=== PATIENT | female | born 1940 | race African-American/Black ===

== ENCOUNTER 2016-12-26 16:21 | Emergency (ER) | payer OTHER ==
[~2016-12-26] VITALS: Ht 162.6 cm; Wt 88.5 kg
[2016-12-26 17:50] LABS: microscopic required? NO
[2016-12-26 17:58] LABS: PLATELET COUNT 270 x10^3mcL (130-400)
[2016-12-26 17:59] LABS: RED CELL DISTRIBUTION WIDTH 16.2 % (11.5-14.5)
[2016-12-26 18:05] LABS: CALCIUM 8.4 mg/dL (8.5-10.1); CARBON DIOXIDE 25.8 mmol/L (21-32); CHLORIDE SERUM 107 mmol/L (98-107); CREATININE SERUM 0.9 mg/dL (0.6-1.0); GLUCOSE SERUM 95 mg/dL (74-106); POTASSIUM SERUM 4.5 mmol/L (3.5-5.1); SODIUM SERUM 141 mmol/L (136-145)
[2016-12-26 18:13] LABS: urine erythrocyte NEGATIVE (NEGATIVE)
[2016-12-26 18:18] LABS: ALBUMIN 3.5 g/dL (3.4-5.0); ALKALINE PHOSPHATASE 109 U/L (46-116); ALT/SGPT 30 U/L (14-59); AMYLASE 70 U/L (25-115); AST/SGOT 22 U/L (15-37); BILIRUBIN TOTAL 0.52 mg/dL (0.20-1.00); CHOLESTEROL 189 mg/dL (<200); LIPASE 177 IU/L (73-393); T4(THYROXINE) 7.7 ug/dL (4.7-13.3); TOTAL PROTEIN, SERUM 7.4 g/dL (6.4-8.2)
[2016-12-26 18:21] LABS: HDL CHOLESTEROL 84 mg/dL (40-60)
[2016-12-26 20:00] VITALS: BP 141/103
== END 2016-12-26 20:00 | disposition home or self-care (01) ==
LOC: ED 16:21
PROVIDERS: Emergency Medicine
DX: R60.0 Localized edema (principal); F03.90 Unspecified dementia, unspecified severity, without behavioral disturbance, psychotic disturbance, mood disturbance, and anxiety; I10 Essential (primary) hypertension; E78.00 Pure hypercholesterolemia, unspecified; E66.9 Obesity, unspecified; I44.0 Atrioventricular block, first degree; Z88.1 Allergy status to other antibiotic agents; Z88.5 Allergy status to narcotic agent
CPT/HCPCS: 36415; 83880; Q0092

== ENCOUNTER 2017-01-15 17:32 | Inpatient (IN) | payer OTHER ==
[~2017-01-15] VITALS: Ht 157.5 cm; Wt 93.1 kg
[2017-01-15 19:34] LABS: BASOPHIL % 1.5 % (0-2); PLATELET COUNT 223 x10^3mcL (130-400)
[2017-01-15 19:50] LABS: CALCIUM 9.5 mg/dL (8.5-10.1); CARBON DIOXIDE 23.5 mmol/L (21-32); CHLORIDE SERUM 107 mmol/L (98-107); GLUCOSE SERUM 131 mg/dL (74-106); POTASSIUM SERUM 4.3 mmol/L (3.5-5.1); SODIUM SERUM 142 mmol/L (136-145)
[2017-01-15 19:55] LABS: ALBUMIN 3.6 g/dL (3.4-5.0); ALKALINE PHOSPHATASE 118 U/L (46-116); ALT/SGPT 19 U/L (14-59); AST/SGOT 21 U/L (15-37)
[2017-01-15 19:58] LABS: RED CELL DISTRIBUTION WIDTH 16.1 % (11.5-14.5)
[2017-01-15] MEDS ORDERED: NAMENDA10 M2 PO (22:04)
[2017-01-15] MEDS ORDERED: CITALOPRAM HYDR20 M1 PO (22:04)
[2017-01-15] MEDS ORDERED: CHLORPROMAZINE10 MG PO (22:05)
[2017-01-15] MEDS ORDERED: SIMVASTATIN20 M1 PO (22:06)
[2017-01-15] MEDS ORDERED: KEPPRA500 MG PO (22:06)
[2017-01-15] MEDS ORDERED: LOSARTAN POTASS25 M1 PO (22:06)
[2017-01-15] MEDS ORDERED: GOOD SENSE OMEP20 MG PO (22:07)
[2017-01-15 22:13] LABS: T3 TOTAL 0.84 ng/mL
[2017-01-15 22:44] LABS: PHOSPHOROUS 2.1 mg/dL (2.5-4.9)
[2017-01-15 22:46] LABS: CHOLESTEROL/HDL RATIO 2.2
[2017-01-15 22:56] VITALS: BP 125/75
[2017-01-15 22:59] VITALS: BP 125/75
[2017-01-15 23:07] LABS: FREE T4 1.09 ng/dL (0.76-1.46); FREE THYROXINE INDEX 2.7 ug/dL (1.4-4.5); T4(THYROXINE) 6.8 ug/dL (4.7-13.3)
[2017-01-16 05:07] VITALS: BP 115/49
[2017-01-16 07:56] VITALS: BP 108/42
[2017-01-16 08:58] VITALS: BP 124/41
[2017-01-16 13:03] LABS: microscopic required? NO; urine erythrocyte NEGATIVE (NEGATIVE)
[2017-01-16 13:32] VITALS: BP 124/41
[2017-01-16 13:36] LABS: AMPHETAMINE QUAL UR NONE DETECTED (NEG <=1000)
[2017-01-16 16:53] VITALS: BP 116/83
[2017-01-16 21:36] VITALS: BP 116/42
[2017-01-17 06:14] VITALS: BP 137/62
[2017-01-17 06:36] LABS: BASOPHIL % 0.9 % (0-2); PLATELET COUNT 196 x10^3mcL (130-400)
[2017-01-17 06:40] LABS: RED CELL DISTRIBUTION WIDTH 16.5 % (11.5-14.5)
[2017-01-17 06:50] LABS: CALCIUM 8.8 mg/dL (8.5-10.1); CARBON DIOXIDE 24.4 mmol/L (21-32); CHLORIDE SERUM 113 mmol/L (98-107); CREATININE SERUM 0.8 mg/dL (0.6-1.0); GLUCOSE SERUM 93 mg/dL (74-106); MAGNESIUM 2.1 mg/dL (1.8-2.4); PHOSPHOROUS 3.9 mg/dL (2.5-4.9); POTASSIUM SERUM 4.3 mmol/L (3.5-5.1); SODIUM SERUM 145 mmol/L (136-145)
[2017-01-17 08:56] VITALS: BP 118/52
[2017-01-17 14:08] VITALS: BP 123/42
[2017-01-17 17:05] VITALS: BP 131/58
[2017-01-17 21:01] VITALS: BP 104/38
[2017-01-18 05:39] VITALS: BP 103/36
[2017-01-18 06:09] LABS: BASOPHIL % 1.4 % (0-2); PLATELET COUNT 200 x10^3mcL (130-400)
[2017-01-18 06:29] LABS: RED CELL DISTRIBUTION WIDTH 16.8 % (11.5-14.5)
[2017-01-18 06:46] LABS: CALCIUM 8.3 mg/dL (8.5-10.1); CHLORIDE SERUM 111 mmol/L (98-107); CREATININE SERUM 0.8 mg/dL (0.6-1.0); GLUCOSE SERUM 90 mg/dL (74-106); POTASSIUM SERUM 3.9 mmol/L (3.5-5.1); SODIUM SERUM 144 mmol/L (136-145)
[2017-01-18 08:04] VITALS: BP 103/36
[2017-01-18] MEDS ORDERED: QUETIAPINE FUMA25 M1 PO (08:24)
[2017-01-18] MEDS ORDERED: BUS10 PO (08:24)
[2017-01-18] MEDS ORDERED: LEVOFLOXACIN500 M1 PO (08:29)
[2017-01-18] MEDS ORDERED: LAC PO (08:30)
== END 2017-01-18 10:05 | disposition home or self-care (01) | DRG 606 ==
LOC: ED 17:32 → MU 20:39 → DU 20:39 → MU 01-16 04:23
PROVIDERS: Emergency Medicine; Student in an Organized Health Care Education/Training Program; ADMIT Family Medicine
DX: R21 Rash and other nonspecific skin eruption (principal); N17.0 Acute kidney failure with tubular necrosis; G93.41 Metabolic encephalopathy; G30.9 Alzheimer's disease, unspecified; F02.80 Dementia in other diseases classified elsewhere, unspecified severity, without behavioral disturbance, psychotic disturbance, mood disturbance, and anxiety; G40.909 Epilepsy, unspecified, not intractable, without status epilepticus; E83.39 Other disorders of phosphorus metabolism; D64.9 Anemia, unspecified; I10 Essential (primary) hypertension; K21.9 Gastro-esophageal reflux disease without esophagitis; M19.90 Unspecified osteoarthritis, unspecified site; E66.9 Obesity, unspecified; Z68.37 Body mass index [BMI] 37.0-37.9, adult
CPT/HCPCS: 83880; 84439; J1956; J2060; J7030; Q0092; Q0161

== ENCOUNTER 2017-02-05 07:32 | Emergency (ER) | payer OTHER ==
[~2017-02-05 07:32] MED LIST: BUS10 PO; CHLORPROMAZINE10 MG PO; CITALOPRAM HYDR20 M1 PO; GOOD SENSE OMEP20 MG PO; KEPPRA500 MG PO; LAC PO; LEVOFLOXACIN500 M1 PO; LOSARTAN POTASS25 M1 PO; NAMENDA10 M2 PO; QUETIAPINE FUMA25 M1 PO; SIMVASTATIN20 M1 PO
[2017-02-05 08:55] LABS: BASOPHIL % 0.7 % (0-2); PLATELET COUNT 287 x10^3mcL (130-400)
[2017-02-05 09:16] LABS: T3 TOTAL 0.82 ng/mL
[2017-02-05 09:18] LABS: FREE T4 1.12 ng/dL (0.76-1.46); FREE THYROXINE INDEX 3.1 ug/dL (1.4-4.5)
[2017-02-05 09:47] LABS: CALCIUM 9.7 mg/dL (8.5-10.1); CARBON DIOXIDE 22.2 mmol/L (21-32); CHLORIDE SERUM 105 mmol/L (98-107); CREATININE SERUM 0.9 mg/dL (0.6-1.0); GLUCOSE SERUM 116 mg/dL (74-106); POTASSIUM SERUM 4.2 mmol/L (3.5-5.1); SODIUM SERUM 139 mmol/L (136-145)
[2017-02-05 09:51] LABS: ALBUMIN 3.5 g/dL (3.4-5.0); ALKALINE PHOSPHATASE 118 U/L (46-116); ALT/SGPT 23 U/L (14-59); AST/SGOT 17 U/L (15-37); BILIRUBIN TOTAL 0.9 mg/dL (0.20-1.00); CHOLESTEROL 177 mg/dL (<200); LIPASE 146 IU/L (73-393); TRIGLYCERIDES 62 mg/dL (<150)
[2017-02-05 09:52] LABS: CHOLESTEROL/HDL RATIO 2.1; HDL CHOLESTEROL 84 mg/dL (40-60)
[2017-02-05 13:14] VITALS: BP 150/87
== END 2017-02-05 13:40 | disposition short-term general hospital (02) ==
LOC: ED 07:32
PROVIDERS: Specialist
DX: M25.551 Pain in right hip (principal); E78.5 Hyperlipidemia, unspecified; I10 Essential (primary) hypertension; W06.XXXA Fall from bed, initial encounter; Y93.89 Activity, other specified; Y92.89 Other specified places as the place of occurrence of the external cause; Y99.8 Other external cause status
CPT/HCPCS: 83880; 84439; J2060; J7030

== ENCOUNTER 2017-09-20 19:09 | Emergency (ER) | payer OTHER ==
[~2017-09-20] VITALS: Ht 152.4 cm; Wt 87.7 kg
[2017-09-20 19:14] VITALS: Ht 152.4 cm; Wt 87.7 kg
[2017-09-20 20:31] LABS: CALCIUM 9.5 mg/dL (8.5-10.1); CARBON DIOXIDE 24.5 mmol/L (21-32); CHLORIDE SERUM 104 mmol/L (98-107); GLUCOSE SERUM 93 mg/dL (74-106); POTASSIUM SERUM 4.1 mmol/L (3.5-5.1); SODIUM SERUM 139 mmol/L (136-145)
[2017-09-20 20:35] LABS: BASOPHIL % 1.3 % (0-2); PLATELET COUNT 260 x10^3mcL (130-400)
[2017-09-20 20:36] LABS: ALBUMIN 3.4 g/dL (3.4-5.0); ALKALINE PHOSPHATASE 101 U/L (46-116); ALT/SGPT 20 U/L (14-59); AST/SGOT 16 U/L (15-37); BILIRUBIN TOTAL 0.68 mg/dL (0.20-1.00)
[2017-09-20 20:40] LABS: RED CELL DISTRIBUTION WIDTH 16.4 % (11.5-14.5)
[2017-09-20 21:57] VITALS: BP 123/72
== END 2017-09-20 21:57 | disposition home or self-care (01) ==
LOC: ED 19:09
PROVIDERS: Emergency Medicine
DX: R07.89 Other chest pain (principal); J45.909 Unspecified asthma, uncomplicated; I11.0 Hypertensive heart disease with heart failure; I50.9 Heart failure, unspecified; F03.90 Unspecified dementia, unspecified severity, without behavioral disturbance, psychotic disturbance, mood disturbance, and anxiety; Z88.5 Allergy status to narcotic agent; Z88.1 Allergy status to other antibiotic agents
CPT/HCPCS: 83880; J2060; Q0092